=== PATIENT | female | born 1955 | race Caucasian/White ===

== ENCOUNTER → 2019-06-02 | Outpatient (CLI) | payer MEDICARE, OTHER ==
--- NOTE | 2019-06-02 16:21 | CONS ---
CONSULTATION DATE OF SERVICE: 06/02/2019 This patient is a 63-year-old lady who has been evaluated in the sleep center for obstructive sleep apnea-hypopnea syndrome. HISTORY OF PRESENT ILLNESS/SLEEP-WAKE EVALUATION: The patient was diagnosed with sleep apnea about 18 years ago, was on treatment with CPAP but had some problem with her CPAP unit and has not been able to use it recently. Her usual sleep schedule is from around 12 midnight until between 4:30 and 6:30 a.m. She does have problems with falling asleep, although no TV in bedroom. She sleeps on the side position. She snores, has episodes of stopped breathing during sleep, wakes up from sleep several times with up to 2 episodes of nocturia. No history of hypnagogic hallucinations, sleep paralysis or cataplexy. [place] Sleepiness Scale is significantly increased at 13. PAST MEDICAL HISTORY: 1. Hypertension. 2. Asthma. 3. Diabetes. 4. Arthritis. 5. Autoimmune hepatitis. MEDICATIONS: 1. Synthroid. 2. Glucophage. 3. Actos. 4. Neurontin. 5. Albuterol on p.r.n. basis. 6. Azathioprine. 7. Some other medications; patient does not remember the names. SOCIAL HISTORY: Negative for smoking or using alcohol. FAMILY HISTORY: Hypertension, hyperlipidemia, arthritis, asthma, bronchitis, sleep apnea, thyroid problems, diabetes, liver problem, acid reflux. REVIEW OF SYSTEMS: Multiple awakenings from sleep, snoring, tiredness and sleepiness during the day. PHYSICAL EXAMINATION: GENERAL: A pleasant lady without distress. VITAL SIGNS: BP 176/98, HR 78, RR 16, height 5 feet 0 inches, weight 222. Body mass index 43.3. Temperature 98.4, oxygen saturation on room air 98%. HEENT: PERRLA, EOMI. Evaluation of oropharynx showed tongue protrudes midline. Extremely low position of soft palate. Mallampati IV. Some restriction of nasal breathing bilaterally. NECK: Supple. No JVD. Thyroid is not palpable. Wide neck; 17-1/2 inches in circumference. LUNGS: Clear to percussion and to auscultation. Good air exchange. No wheezing or rhonchi. HEART: S1, S2 regular. No murmurs, gallops or rubs. ABDOMEN: Obese. EXTREMITIES: One plus bilateral ankle edema. ELECTRONIC PUBLISHING SPECIALIST: Awake, alert, and oriented X3. Cranial nerves 2 to 7 intact. There is no fasciculation or atrophy. noted. No focal deficits observed. IMPRESSION: 1. Snoring, witnessed episodes of stopped breathing during sleep, waking from sleep with choking, extremely low position of soft palate, wide neck, sleepiness, [place] Sleepiness Scale 13, history of obstructive sleep apnea in the past; obstructive sleep apnea-hypopnea syndrome. 2. Obesity; body mass index 43.3. 3. Hypothyroidism. 4. Hypertension. 5. Asthma. 6. History of arthritis. 7. Diabetes mellitus. 8. History of autoimmune hepatitis, diagnosed in 2016. PLAN: 1. Polysomnography for evaluation of patient's breathing during sleep. 2. CPAP/BiPAP titration if sleep study confirms obstructive sleep apnea-hypopnea syndrome. 3. Preferable position during sleep on the side. 4. No driving if patient feels any sleepiness. 5. I will see patient for follow up visit to explain results of testing and following plan. Thank you very much for referring this patient for consultation. Sincerely, Ruben Proctor MD, PhD, FAASM Diplomat of [employer] [employer] Senior [employer] Engineer of [facility] [place] MMODL / IJN: [id number] /
== END ==
LOC: SLEEP 14:46
PROVIDERS: ATTEND Internal Medicine
DX: G47.33 Obstructive sleep apnea (adult) (pediatric) (principal); E66.9 Obesity, unspecified; J45.909 Unspecified asthma, uncomplicated; E03.9 Hypothyroidism, unspecified; I10 Essential (primary) hypertension; M19.90 Unspecified osteoarthritis, unspecified site; E11.9 Type 2 diabetes mellitus without complications; K75.4 Autoimmune hepatitis; Z79.899 Other long term (current) drug therapy; Z68.41 Body mass index [BMI] 40.0-44.9, adult
CPT/HCPCS: 99211

== ENCOUNTER → 2019-06-03 | Outpatient (CLI) | payer MEDICARE, OTHER ==
--- NOTE | 2019-06-03 11:10 | BD ---
EXAMINATION TYPE: Axial Bone Density DATE OF EXAM: 06/03/2019 COMPARISON: 12/20/2012 CLINICAL HISTORY: M 79.0 Height: 60 IN Weight: 220 LBS FRAX RISK QUESTIONS: Secondary Osteoporosis: 2. Hyperthyroidism: YES 3. Menopause before 45: YES PARTIAL HYST AGE 40 5. Chronic liver disease: PT HAS AUTOIMMUNE HEPATITIS RISK FACTORS HISTORY OF: Active: MODERATE Postmenopausal woman: PARTIAL HYST AGE 40 Lost more than 2 inches in height since high school: YES 3 " MEDICATIONS: Thyroid Medications: YES Which medication: Levothyroxine How Lon+ YEARS Additional Medications: CALCIUM, VIT D, LEVOTHYROXINE, CHOLESTEROL MEDS, DIABETES MEDS, BLOOD PRESSUR E MEDS, LIVER MEDS EXAM MEASUREMENTS: Bone mineral densitometry was performed using the [employer] System. Bone mineral density as measured about the Lumbar spine is: ----- L1-L4(G/cm2): 1.393 T Score Values are as follows: ----- L2: 2.4 ----- L3: 1.6 ----- L4: 2.1 ----- L1-L4: 1.8 Bone mineral density has: Increased 6.3% since study of: 12/20/2012 Bone mineral density about the R hip (g/cm2): 0.899 Bone mineral density about the L hip (g/cm2): 0.840 T Score values are as follows: -----R Neck: -1.0 -----L Neck: -1.4 -----R Total: -0.8 -----L Total: 0.0 Bone mineral density has: Decreased -4.6% since study of: 12/20/2012 IMPRESSION: Osteopenia (T Score between -2.5 and -1). There is slightly increased risk of fracture and the patient may be considered for treatment. Re-Screen 2-5 years. NOTE: T-SCORE=SD OF THE YOUNG ADULT MEAN.
--- NOTE | 2019-06-06 09:49 | MM ---
Reason for exam: screening (asymptomatic). Last mammogram was performed 3 years and 2 months ago. History: Patient is postmenopausal. Benign core biopsy of the left breast, 2008. Physical Findings: A clinical breast exam by your physician is recommended on an annual basis and results should be correlated with mammographic findings. MG 3D Screening Mammo W/Cad Bilateral CC and MLO view(s) were taken. Prior study comparison: April 15, 2016, bilateral MG screening mammo w CAD. May 08, 2014, left breast MG work up mamm w CAD LT. The breast tissue is heterogeneously dense. This may lower the sensitivity of mammography. Benign appearing bilateral calcifications. No suspicious abnormality. Skin defect on left in upper outer quadrant is chronic, possibly post biopsy change. No significant changes when compared with prior studies. ASSESSMENT: Benign, BI-RAD 2 RECOMMENDATION: Routine screening mammogram of both breasts in 1 year.
== END | disposition home or self-care (01) ==
LOC: RADMAMWWP 09:22
PROVIDERS: ATTEND Internal Medicine Geriatric Medicine
DX: Z12.31 Encounter for screening mammogram for malignant neoplasm of breast (principal); M85.80 Other specified disorders of bone density and structure, unspecified site
CPT/HCPCS: 77063; 77067; 77080

== ENCOUNTER → 2019-08-02 | Outpatient (CLI) | payer MEDICARE, OTHER ==
[2019-08-02 12:23] LABS: Basophils % (A) 0 %; Eosinophils # (A) 0.2 k/uL (0-0.7); Eosinophils % (A) 3 %; HCT 37.1 % (34.0-46.0); HGB 12.4 gm/dL (11.4-16.0); Lymphocytes # (A) 1.4 k/uL (1.0-4.8); Lymphocytes % (A) 23 %; MCH 29.1 pg (25.0-35.0); MCHC 33.4 g/dL (31.0-37.0); MCV 87.1 fL (80.0-100.0); Mean Platelet Volume 5.5; Monocytes # (A) 0.3 k/uL (0-1.0); Monocytes % (A) 5 %; Neutrophils % (A) 67 %; Platelet Count 330 k/uL (150-450); RBC 4.26 m/uL (3.80-5.40); RDW 12.9 % (11.5-15.5); WBC 6.1 k/uL (3.8-10.6)
[2019-08-02 17:45] LABS: African American GFR (CKD) 89.7 (60.0-200.0); Albumin 4.5 g/dL (3.80-4.90); Albumin/Globulin Ratio 2.25 (1.60-3.17); Anion Gap 12.2 mmol/L (4.00-12.00); BUN/Creat Ratio 23.75 Ratio (12.00-20.00); Calcium 9.7 mg/dL (8.7-10.3); Carbon Dioxide 25.8 mmol/L (21.6-31.8); Chol/HDL Ratio 4.58; LDL Cholesterol,Calculated 109.4 mg/dL (0.0-131.0); Potassium 4.4 mmol/L (3.5-5.5); Total Bilirubin 0.6 mg/dL (0.2-1.2); Total Protein 6.5 g/dL (6.2-8.2); VLDL Calculation 33.6 mg/dL (5.00-40.00)
[2019-08-02 17:52] LABS: T4, Free (Free Thyroxine) 1.8 ng/dL (0.80-1.80)
[2019-08-02 21:17] LABS: Hemoglobin A1C 6.8 % (4.0-6.0)
== END | disposition home or self-care (01) ==
LOC: LABWHC1 10:48
PROVIDERS: ATTEND Internal Medicine Gastroenterology
DX: K75.4 Autoimmune hepatitis (principal); E11.9 Type 2 diabetes mellitus without complications; E03.9 Hypothyroidism, unspecified; E11.65 Type 2 diabetes mellitus with hyperglycemia
CPT/HCPCS: 36415; 80053; 80061; 82043; 82570; 83036; 84439; 84443; 84681; 85025

== ENCOUNTER → 2019-10-27 | Outpatient (CLI) | payer MEDICARE, OTHER ==
--- NOTE | 2019-10-27 12:56 | SLS ---
SLEEP STUDY DATE OF SERVICE: 10/27/2019 A 63-year-old lady who has been followed in the Sleep Center for treatment of obstructive sleep apnea-hypopnea syndrome. Recently patient had a polysomnogram which showed severe sleep apnea with apnea-hypopnea index 54. CPAP titration when her respiration was normalized. Subsequently, she received new CPAP unit, and today is the first visit after she received new CPAP. She is able to use it every night. Sometimes she feels that her nasal mask slightly small for her nose; otherwise no significant problems. [place] Sleepiness Scale today is 2. I checked CPAP unit, range of the pressure 5-15 with average pressure 12.7. Usage is 100% of nights more than 4 hours with average usage 8 hours per night. Leak is 22 L/minute. Latency is slightly high for the nasal mask. Apnea-hypopnea index was 1.9. Sometimes patient feels that shoe opened her mouth during sleep. She may have drooling. MEDICATIONS: Levothyroxine, Glucophage, Actos, Neurontin, albuterol, , glimepiride, hydrochlorothiazide, atenolol, meclizine, Singulair, Micardis, Nexium, Zetia, atorvastatin, amitriptyline. PHYSICAL EXAM: Patient in no distress, BP 166/82, HR 90, RR 18, weight 219.6, temperature 98.4, oxygen saturation at room air 96%. OROPHARYNX: Extremely low position of soft palate, Mallampati IV. ABDOMEN: Obese. Patient walks with a walker. NECK: Supple, no JVD. Thyroid is not palpable. LUNGS: Clear to percussion and to auscultation. Good air exchange. No wheezing or rhonchi. HEART: S1, S2 regular. No murmurs, gallops, or rubs. DISPATCHER RELAY: Awake, alert, and oriented X3. Cranial nerves 2 to 7 intact. There is no fasciculation or atrophy noted. No focal deficits observed. IMPRESSION: 1. Obstructive sleep apnea-hypopnea syndrome; apnea-hypopnea index 54. Patient demonstrated 100% compliance with treatment, benefitting from treatment. 2. Patient has episodes of drooling, but indicated the reason for leak, possibly patient opening her mouth during the sleep. 3. Obesity. 4. Hypothyroidism. 5. Hypertension. 6. Asthma. 7. History of arthritis. 8. Diabetes mellitus. 9. History of autoimmune hepatitis diagnosed in 2016. PLAN: 1. Prescription for chin strap. 2. Change size of the nasal mask to medium. 3. Patient will continue to use CPAP equipment every night for the whole night with same regimen of pressure. 4. Losing weight. 5. No driving if feeling sleepiness. Thank you very much for allowing me to participate in the management of your patient. Sincerely, Ruben Proctor MD, PhD, FAASM Diplomat of [place] [employer] Medicine Life [employer] Examiner of [facility] [place] MMODL / IJN: [id number] /
== END | disposition home or self-care (01) ==
LOC: SLEEP 10:25
PROVIDERS: ATTEND Internal Medicine
DX: G47.33 Obstructive sleep apnea (adult) (pediatric) (principal); E66.9 Obesity, unspecified; E03.9 Hypothyroidism, unspecified; I10 Essential (primary) hypertension; J45.909 Unspecified asthma, uncomplicated; E11.9 Type 2 diabetes mellitus without complications; Z87.19 Personal history of other diseases of the digestive system; Z87.39 Personal history of other diseases of the musculoskeletal system and connective tissue; Z99.89 Dependence on other enabling machines and devices; Z79.890 Hormone replacement therapy; Z79.84 Long term (current) use of oral hypoglycemic drugs; Z79.899 Other long term (current) drug therapy

== ENCOUNTER → 2020-04-28 | Outpatient (CLI) | payer MEDICARE ==
--- NOTE | 2020-04-29 16:35 | MR ---
EXAMINATION TYPE: MR brain wo/w con DATE OF EXAM: 04/28/2020 COMPARISON: 07/13/2012 HISTORY: Malignant neoplasm of the brain CONTRAST: Standard multiplanar, multisequence MRI departmental protocol utilizing 10 mL intravenous Gadavist ga dolinium contrast. There is mild cerebral cortical atrophy. There is no mass effect nor midline shift. There is slight t hinning of the corpus callosum. Diffusion images show no evidence of acute infarct. The brainstem is intact. There are a few scattered small white matter high signal foci in both cerebral hemispheres on the FLAIR images that measure up to 4 mm. Total number is less than 10. The sella turcica appears no rmal. Optic chiasm appears normal. There is no evidence of orbital mass. The contrast images show no pathologic enhancement. There is normal opacification of the venous sinus es. There is no evidence of intracranial hemorrhage. IMPRESSION: Mild cerebral atrophy with scattered small white matter high signal foci probably due to some minimal chronic small vessel ischemia. This appears not significantly different than old exam. No evidence o f cortical infarct. No evidence of brain tumor.
== END | disposition home or self-care (01) ==
LOC: RADMRIMAIN 08:20
PROVIDERS: ATTEND Psychiatry & Neurology Neurology
DX: G31.9 Degenerative disease of nervous system, unspecified (principal); R90.89 Other abnormal findings on diagnostic imaging of central nervous system; C71.9 Malignant neoplasm of brain, unspecified
CPT/HCPCS: 70553; A9585

== ENCOUNTER → 2020-08-14 | Outpatient (CLI) | payer MEDICARE ==
--- NOTE | 2020-08-15 11:46 | MM ---
Reason for exam: screening (asymptomatic). Last mammogram was performed 1 year and 2 months ago. History: Patient is postmenopausal. Benign core biopsy of the left breast, 2008. Physical Findings: A clinical breast exam by your physician is recommended on an annual basis and results should be correlated with mammographic findings. MG 3D Screening Mammo W/Cad Bilateral CC and MLO view(s) were taken. Prior study comparison: June 03, 2019, bilateral MG 3d screening mammo w/cad. April 15, 2016, bilateral MG screening mammo w CAD. There are scattered fibroglandular densities. There is no discrete abnormality. No significant changes when compared with prior studies. ASSESSMENT: Negative, BI-RAD 1 RECOMMENDATION: Routine screening mammogram of both breasts in 1 year.
== END | disposition home or self-care (01) ==
LOC: RADMAMWWP 11:39
PROVIDERS: ATTEND Internal Medicine Geriatric Medicine
DX: Z12.31 Encounter for screening mammogram for malignant neoplasm of breast (principal)
CPT/HCPCS: 77063; 77067

== ENCOUNTER → 2021-06-04 | Outpatient (CLI) | payer MEDICARE ==
[2021-06-04 13:24] LABS: INR 0.9 (<1.2); Partial Thromboplastin Time 22.6 sec (22.0-30.0); Prothrombin Time 9.7 sec (9.0-12.0)
[2021-06-04 18:45] LABS: Basophils # (A) 0.08 X 10*3/uL (0.00-0.10); Basophils % (A) 0.9 %; Eosinophils # (A) 0.14 X 10*3/uL (0.04-0.35); Eosinophils % (A) 1.6 %; HCT 41.6 % (37.2-46.3); HGB 13.3 g/dL (12.0-15.0); Lymphocytes # (A) 1.72 X 10*3/uL (0.90-5.00); Lymphocytes % (A) 19.5 %; MCV 90.8 fL (80.0-97.0); Mean Platelet Volume 9.6 fL (9.5-12.2); Monocytes # (A) 0.58 X 10*3/uL (0.20-1.00); Monocytes % (A) 6.6 %; Neutrophils # (A) 6.17 X 10*3/uL (1.80-7.70); Platelet Count 443 X 10*3/uL (140-440); RBC 4.58 X 10*6/uL (4.10-5.20); RDW 13.6 % (11.5-14.5); WBC 8.81 X 10*3/uL (4.50-10.00)
[2021-06-04 22:39] LABS: African American GFR (CKD) 54.2 (60.0-200.0); Albumin 4.9 g/dL (3.80-4.90); Albumin/Globulin Ratio 1.69 (1.60-3.17); Anion Gap 12.7 mmol/L (4.00-12.00); Carbon Dioxide 21.3 mmol/L (21.6-31.8); Globulin 2.9 g/dL (1.6-3.3); Non-African American GFR(CKD) 46.7 (60.0-200.0); Potassium 4.9 mmol/L (3.5-5.5); Total Bilirubin 0.5 mg/dL (0.3-1.2); Total Protein 7.8 g/dL (6.2-8.2)
== END | disposition home or self-care (01) ==
LOC: LABWHC1 10:44
PROVIDERS: ATTEND Nurse Practitioner Gerontology
DX: K75.4 Autoimmune hepatitis (principal); E11.40 Type 2 diabetes mellitus with diabetic neuropathy, unspecified
CPT/HCPCS: 36415; 80053; 85025; 85610; 85730

== ENCOUNTER → 2021-06-04 | Outpatient (CLI) | payer MEDICARE | END | disposition home or self-care (01) | LOC: LABPAT 10:40 | PROVIDERS: ATTEND Orthopaedic Surgery | DX: Z53.9 Procedure and treatment not carried out, unspecified reason (principal) ==

== ENCOUNTER 2021-06-05 10:19 | Day surgery (SDC) | payer MEDICARE ==
[2021-06-04 14:01] VITALS: BMI 43.4
[~2021-06-05 10:19] MED LIST: DEXAMETHASONE SOD PHOSPHATE 4 MG/ML 1 ML VIAL IV ONE; HYDROmorphone 0.5 MG/0.5 ML SYRINGE IVP PRN; LACTATED RINGERS 1,000 ML IV SCH; ONDANSETRON 4 MG/2 ML VIAL IVP ONE
[2021-06-05] MEDS ORDERED: ONDANSETRON 4 MG/2 ML VIAL ONE (11:16)
[2021-06-05 11:26] VITALS: TEMP 98.6
[2021-06-05 11:32] LABS: Glucose,Whole Blood 334 mg/dL (75-99)
[2021-06-05] MEDS ORDERED: METOPROLOL TARTRATE 5 MG/5 ML VIAL IVP ONE (11:44)
[2021-06-05] MEDS ORDERED: INSULIN ASPART (NovoLOG) 100 UNIT/ML VIAL SQ ONE (11:44)
[2021-06-05] MEDS ORDERED: MIDAZOLAM 2 MG/2 ML VIAL IVP ONE (12:04)
--- NOTE | 2021-06-05 12:20 | P.HPOR ---
History of Present Illness H&P Date: 06/05/21 Chief Complaint: R wrist pain 65 yo female presented to ED over the weekend for R wrist pain. She sustained a fall from standing onto her wrist at her [place]. She had immediate pain and inability to bear weight. She c/o swelling in the wrist. She presnted to the ED and images showed a comminuted intraarticular fracture of the right wrist. She presented to the office then for follow up and surgical considerations. She was deemed to have a surgical fracture upon this visit and was booked for surgery. Today she was seen and evaluated in the pre op area. She is still having wrist pain. She was evaluated by anesthesia who deemed her fit for surgery at this time. We discussed risks and benefits of the procedure again and she was willing to assume these risks and all the risk of surgery. Site was marked and she was given a interscalene block by dept of anesthesia. Consent was confirmed before this. Rt side is correct. Abx were ordered and she is ready for procedure. Review of Systems 14 points review of systems completed and as stated in HPI, all other systems reviewed are negative. Past Medical History Past Medical History: Atrial Fibrillation, Asthma, CVA/TIA, Diabetes Mellitus, GERD/Reflux, Hyperlipidemia, Hypertension, Liver Disease, Sleep Apnea/CPAP/BIPAP, Thyroid Disorder Additional Past Medical History / Comment(s): Dizziness, TIA X3, last one 12-14 yrs ago, joint pain, elevated liver enzymes, Autoimmune Hepatitis, CPAP use. History of Any Multi-Drug Resistant Organisms: MRSA Date of last positivie culture/infection: 02/20/08 MDRO Source:: Left breast Past Surgical History: Hernia Repair, Hysterectomy Additional Past Surgical History / Comment(s): Fatty tumor removed from lower left leg. Past Anesthesia/Blood Transfusion Reactions: No Reported Reaction Past Psychological History: Anxiety Smoking Status: Never smoker Past Alcohol Use History: None Reported Past Drug Use History: None Reported - Past Family History Mother Family Medical History: No Reported History Medications and Allergies Home Medications Medication Instructions Recorded Confirmed Type Albuterol Inhaler (Mhu) [Ventolin 1 - 2 puff INHALATION RT-Q6H PRN 03/03/16 06/04/21 History Hfa Inhaler (Mhu)] Aspirin [Adult Low Dose Aspirin EC] 81 mg PO DAILY 03/03/16 06/04/21 History Gabapentin [Neurontin] 100 mg PO TID 03/03/16 06/04/21 History Insulin Glulisine [Apidra Solostar] 0 unit SQ-PUMP CONTINUOUS 03/03/16 06/04/21 History Levothyroxine Sodium [Synthroid] 200 mcg PO QAM 03/03/16 06/04/21 History Meclizine [Antivert] 25 mg PO DAILY PRN 03/03/16 06/04/21 History Losartan Potassium [Cozaar] 100 mg PO QAM 05/27/16 06/04/21 History azaTHIOprine [Imuran] 50 mg PO DAILY 05/27/16 06/04/21 History atenoloL [Tenormin] 25 mg PO HS #30 tab 06/02/16 06/04/21 Rx Acetaminophen-Codeine 300-30mg 1 tab PO Q4H PRN 06/04/21 06/04/21 History [Tylenol w/codeine #3] Glimepiride [Amaryl] 0.5 mg PO DAILY PRN 06/04/21 06/04/21 History Insulin Glargine [Lantus] 15 unit SQ ONCE 06/04/21 06/04/21 History metFORMIN HCL [Glucophage] 500 mg PO DAILY 06/04/21 06/04/21 History Allergies Allergy/AdvReac Type Severity Reaction Status Date / Time sulfamethoxazole AdvReac Unknown Verified 06/05/21 11:10 [From Bactrim] trimethoprim [From Bactrim] AdvReac Unknown Verified 06/05/21 11:09 Physical Examination Osteopathic Statement: *. No significant issues noted on an osteopathic structural exam other than those noted in the History and Physical/Consult. Patient is alert and oriented 3 appears well-nourished well-hydrated is in no acute distress. They do not appear septic. There is TTP of the right wrist in her splint. She has some swelling about this area and ecchymosis as well. Lower extremities with 5 out of 5 strength in all major muscle groups Upper extremities show 5/5 strength in all major muscle groups. Except for the right wrist and hand which has swelling and pain secondary to fracture There is FROM that is painless of the b/l UE and LE in all major joints. They are intact to light touch sensation in L2 to S1 nerve distribution. As well as a C5 to T1 nerve distribution DTR 2/4 all upper and lower extremities Patient has palpable dorsalis pedis was posterior tibial pulses. Palpable Rad Ulnar pulses b/l Capillary refill is brisk and less than 2 seconds in all fingertips Compartments are soft and compressible. Patient shows a negative Homans Cranial nerves II through XII are grossly intact. Special Testing: Stable DRUJ joint Results X-rays of the right wrist demonstrate a right comminuted intra-articular fracture of the right distal radius with a large volar Hollis's fragment that is displaced. This is closed 3 part. DRUJ is congruent. The remainder visualization of the bony prominences demonstrates no other fracture dislocation of this time. Some radiocarpal arthritis noted. - Labs Labs: Abnormal Lab Results - Last 24 Hours (Table) 06/05/21 Range/Units 11:21 POC Glucose (mg/dL) 334 H (75-99) mg/dL Assessment and Plan Assessment: 65-year-old female status post fall from standing with right intra-articular comminuted distal radius fracture 3 part closed Plan: Orthopedic Surgery Risk Review Sharmila Dominguez is a 65-year-old [id number] female presenting for evaluation of sudden onset wrist pain, inability to bear weight after fall from standing onto her right wrist. It was my pleasure to have seen and examined Sharmila Dominguez . In our visit today we have had a chance to go over subjective complaints, physical examination findings and treatments including the natural course history without intervention and various interventional options. Her imaging demonstrates right distal radius comminuted intra-articular fracture with volar Hollis's displaced fragment. On physical exam, Sharmila Dominguez demonstrates pain with motion of pain with movement of the right wrist swelling and ecchymosis, which is NV intact at this time. I have explained to the patient that this fracture needs stabilization. Based on the patients imaging, physical exam, and the rapid progression and disabling nature of her symptoms, at this time I recommend surgery in the form or a: Open reduction internal fixation right wrist I discussed the risk and benefits of this procedure at length with Sharmila Dominguez . Questions were invited and answered, and the patient wishes to proceed as outlined below. Currently, I am recommendin. Open reduction and internal fixation of right wrist 2. Review of surgical risks and benefits as well as an educational packet on the proposed surgical procedure. Risks: All surgical procedures come with inherent risks, including those related to positioning, anesthesia, intraoperative findings, and postoperative complications. It is important to understand that surgery does not come with any guarantee of a successful outcome as complications and adverse events are always possible. The patient was given a handout discussing the surgical procedure and risks associated with the intervention, both of which were discussed with the patient. These risks include but are not limited to the following: - Experiencing same, different or even worse symptoms compared to before surgery. - Requiring further surgery or other forms of treatment presently or at some time in the future . - On an extreme but fortunately relatively rare basis severe complication such as blindness, stroke, heart attack, temporary and/or permanent nerve injury, paralysis, coma, or may occur, sometimes without known explanation. - Surgical complications may include but are not limited to risk of infection, fluid accumulation in the surgical dissection site, including a seroma or hematoma, that requires additional surgery, wound drainage, bleeding, new numbness or weakness, vision changes/loss, spinal fluid leakage, non-healing and/or infected incision, headaches, difficulty or inability to swallow, hoarseness, hemopneumothorax, pneumothorax, injury to nerves, spinal cord, blood vessels, lymphatics or other vital organs (i.e., bowel injury, injury to the great vessels); heterotopic bone formation; complications related to the hardware such as screws, rods, including misplaced hardware, device failure, hardware fracture/breakage, or hardware loosening; retained surgical instrumentations or devices and the need for further surgery. - Medical risks of the planned surgery include but are not limited to generalized Infections to the whole body or local areas outside of the surgical site (sepsis), heart attack, bleeding, anaphylaxis, meningitis, seizure, epilepsy, hearing loss, burn farris, laceration of the head or other areas of the body, bruising, hypersensitivity of the skin, bladder over distension; allergic reaction; shoulder injury related to positioning; fat, blood and air clots to other areas of the body like heart, lungs, brain; failure of internal organs such as lungs, kidneys, liver and excessive bleeding. If blood transfusions are necessary, note that transfusions may cause intolerance reactions such as anaphylaxis or other complex reactions. Despite best efforts, the results of surgery might not heal in terms of bone, soft tissues such as skin, fascia, ligaments, and joints. [employer] is an educational center that serves as a training facility for physician assistants, nurses, orthopedic residents and fellows. Residents are physicians who are completing their surgical intensive training following medical school. They assist in the operating room with direct supervision of the attending surgeons. [place] are surgeons who have completed their training and eligible for board certification. They have opted for an elective year of more specialized training in their field. They assist in the operating room under the supervision of the attending surgeons. Physician assistants are medically trained surgical providers who function in the outpatient, inpatient, and operating room setting under the direct supervision of the attending surgeon. [facility] has multiple operating rooms with single and overlapping rooms running daily. They currently function under the required guidelines as produced by the [facility] Finance Committee with regards to the overlapping rooms and will continue to comply with changes to this policy as they occur. The requirements include and are complied with as follows: (1) the critical portions of the overlapping rooms will not occur at the same time, (2) the attending physician will be physically present during the critical portions of the procedure and immediately available during the entire case, and (3) a back-up attending is designated should the primary attending not be immediately available. The patient has had a chance to review all the listed information, has been given print outs detailing this information, and has had all his/her questions answered to their satisfaction. It was my pleasure to have seen and examined Sharmila Dominguez . In our visit today we have had a chance to go over my understanding of our patient's current condition, the natural course history without intervention and various interventional options. Questions were invited and answered, and the patient wishes to proceed as outlined above. I have seen and examined the patient for 25 minutes and we have spent more than 50% of the time in repeat and detailed counseling about the patient's condition, its natural course history with out and as much as can be predicted with surgery and re-review of various surgical treatment options. In conclusion, Sharmila Dominguez requested we proceed with the above suggested surgery and are willing to accept risks and limitations of the suggested surgery as nature of the disease process and our best attempts at treatment for the condition. Thank you again for allowing us to be part of your patient's care. Please don't hesitate to contact me if you have any further questions. Signed and authenticated by: Sebastián Bay DO [facility] Sp[facility] Complex and Minimally Invasive Spine Surgery [address] [place] [address]
[2021-06-05] MEDS ORDERED: SUCCINYLCHOLINE CHLORIDE 100 MG/5 ML SYR IV ONE (12:22)
[2021-06-05] MEDS ORDERED: PHENYLEPHRINE-0.9% NACL SYG 1,000 MCG/10 ML SYRINGE ONE (12:22)
[2021-06-05] MEDS ORDERED: PROPOFOL 10 MG/ML 20 ML VIAL IV ONE (12:22)
[2021-06-05] MEDS ORDERED: fentaNYL (PF) 50 MCG/ML 2 ML AMP ONE (12:22)
[2021-06-05] MEDS ORDERED: ROPIVACAINE 5 MG/ML 30 ML VIAL ONE (12:22)
[2021-06-05 13:37] LABS: Glucose,Whole Blood 262 mg/dL (75-99)
--- NOTE | 2021-06-05 14:01 | P.ANPRN ---
Procedure Note - Anesthesia - Nerve Block Performed Right Supraclavicular Single Time Out Performed: Yes Date of Procedure: 06/05/21 Procedure Start Time: : Procedure Stop Time: 12:09 Location of Patient: PreOp Indication: Acute Post-Operative Pain, Requested by Surgeon Sedation Type: Sedate with meaningful contact maintained Preparation: Sterile Prep Position: Supine Needle Types: Pajunk Needle Gauge: 21 Ultrasound used to visualize needle placement: Yes Ultrasound used to observe medication spread: Yes Blood Aspirated: No Pain Paresthesia on Injection Noted: No Resistance on Injection: Normal Image Stored and Saved: Yes Events: Uneventful and Well Tolerated (ropi .5% 20cc)
[2021-06-05 14:34] VITALS: RESP 16
[2021-06-05 15:11] LABS: Glucose,Whole Blood 220 mg/dL (75-99)
[2021-06-05 16:37] VITALS: BP 149/79; PULSE 85
--- NOTE | 2021-06-06 19:59 | OP ---
OPERATIVE REPORT DATE OF SERVICE: 06/05/2021. PREOPERATIVE DIAGNOSIS: Right distal radius fracture, intra-articular, three-part with volar Hollis's fragment. POSTOPERATIVE DIAGNOSIS: Right distal radius fracture, intra-articular, three-part with volar Hollis's fragment. PROCEDURES PERFORMED: ORIF, right distal radius. IMPLANTS: Arthrex distal radius locking plate narrow. ANESTHESIA: GETA with regional block. SURGEON: Sebastián Bay DO. LEHR TENDER: Shaji CALZADA, who was present for the entire case and necessary due to the complexity of the case. ESTIMATED BLOOD LOSS: 20 mL IV FLUIDS: 1000. URINE OUTPUT: None. PATHOLOGY: None sent. CONDITION: Stable. DISPOSITION: To PACU. INDICATIONS FOR PROCEDURE: This is a 65-year-old right-hand dominant female who sustained a fall from standing at her yazidism event. She complained of pain in her right wrist and she went to the emergency department. She was found to have a right distal radius fracture that was displaced. They attempted reduction, placed in a splint and she was seen in the office. Upon followup in office, she has continued to have pain in her wrist and inability to bear weight with it. X-rays demonstrated a right distal radius fracture that was intra-articular comminuted with a volar Hollis's fragment that was displaced and shortened. We discussed with the patient conservative versus surgical options and she elected for surgical treatment of this unstable fracture, which is reasonable. The patient was seen in the preoperative area. All preop protocols followed. The patient was seen by the department of anesthesia and deemed fit for surgery. The site was marked. She was given an interscalene block by the department of anesthesia. She was given a weight based dose of antibiotics. We confirmed the consent form and she was ready to proceed with procedures. We discussed risks and benefits again as outlined in the risk report. She is willing to assume these risks and all the risks of surgery. PROCEDURE: The patient was transferred to the operative suite, placed supine by the Dept of Anesthesia and placed supine on the operating table. An armboard was placed on the right upper extremity. All bony prominences were padded accordingly. SCDs were placed on the patient's lower extremities. The right arm was exposed. A tourniquet was placed on the patient's right upper arm and well-padded. 1015 was placed around this. Briefing was performed and all parties ready for the surgery. The patient's right arm was then prepped and draped in normal sterile fashion. Time-out was performed and parties in agreement with procedure to be performed. A standard volar Demond approach to the distal radius was taken. We made a skin incision over the FCR and blunt dissected down to the sheath of the FCR, which was then incised sharply with a knife. We then mobilized the FCR medially. We were then able to incise the dorsal part of the sheath and dissected bluntly down to the pronator. The pronator was extremely hypertrophied in this area and was very erythematous and hematoma was about this area secondary to fracture. The pronator was released in a L type fashion from the radial styloid on the radial aspect and across transversely distally. Once we had visualization of the fracture as well as the radial shaft, the fracture was reduced using a combination of manual traction, ligamental Taxus and a [place] elevator. Once it was in a good position, mini C-arm was used to confirm fracture reduction. The volar fragment was extremely unstable and so in order to reduce this, we aided with a plate reduction for buttressing of this fragment. The plate was selected and it was sized and put into place. Once it was in place, we were able to pin the plate. We then reduced the volar Hollis's fragment once again and held it reduced with the plate and a shaft screw. We placed 1 shaft screw in the sliding hole, which allowed us to slide the plate distally to a good position as well as to reduce and hold the fracture in a buttressing type motion. We then drilled the distal row of the plate with locking smooth pegs. These were all measured and then placed accordingly under AP and lateral fluoroscopy. We then drilled the proximal row on the ulnar side and this was able to be placed, however, we could place the radial side as this was within the fracture fragment. We then placed 2 more shaft screws and these had good purchase. We then took AP and lateral fluoroscopy. The plate was in good position. The fracture was reduced. We ranged the wrist and the fracture was stable at this time. We then copiously irrigated the wound with normal sterile saline. We did place 1 mL of DBM into the fracture area due to some bone void in the area from comminution. This was impacted into place and was extra-articular. We then proceeded with closure. 2-0 Vicryl was used in the subcu tissue, followed by a running 2-0 nylon in the skin. Wound edges approximated very well. The wound was then cleaned and dressed sterilely with Adaptic, 4 x 4, ABD, and was overwrapped with a Webril. The patient was then placed in a well-padded well-molded volar dorsal splint of the right upper extremity. This was overwrapped with an Yadiel wrap. Tourniquet was deflated before this at 42 minutes. We were able to cauterize any bleeders with electrocautery. The patient was then transferred back to her hospital bed. She was awakened by the Department of Anesthesia, having tolerated the procedure very well with no complications. The patient was transferred to the PACU in a stable condition. KEERTHI / BOYD: [id number] / MG
== END 2021-06-05 16:55 | disposition home or self-care (01) ==
LOC: OR 10:19
PROVIDERS: ATTEND Orthopaedic Surgery
DX: S52.561A Barton's fracture of right radius, initial encounter for closed fracture (principal); W18.30XA Fall on same level, unspecified, initial encounter; K75.4 Autoimmune hepatitis; E07.9 Disorder of thyroid, unspecified; E78.5 Hyperlipidemia, unspecified; I10 Essential (primary) hypertension; G47.33 Obstructive sleep apnea (adult) (pediatric); E11.9 Type 2 diabetes mellitus without complications; I48.91 Unspecified atrial fibrillation; J45.909 Unspecified asthma, uncomplicated; K21.9 Gastro-esophageal reflux disease without esophagitis; Z79.4 Long term (current) use of insulin; Z79.82 Long term (current) use of aspirin; Z88.1 Allergy status to other antibiotic agents; Z88.2 Allergy status to sulfonamides; Z86.73 Personal history of transient ischemic attack (TIA), and cerebral infarction without residual deficits
CPT/HCPCS: 25609; 64415; 76942; C1713 ×2; J2250; J0690; J2405; J3010; J2795; J2370; J0330; J2704; J1170